=== PATIENT | male | born 1955 | race Caucasian/White ===

== ENCOUNTER 2019-03-16 09:49 | Day surgery (SDC) | payer OTHER ==
[2019-03-16] MEDS ORDERED: CEFAZOLIN 1 GM INJ (11:22)
[2019-03-16] MEDS ORDERED: LIDOCAINE 2% (SDV) 5 ML INJ (11:22)
[2019-03-16] MEDS ORDERED: PROPOFOL 20 ML (11:22)
[2019-03-16] MEDS ORDERED: MIDAZOLAM 1 MG/ML 2 ML INJ (11:23)
[2019-03-16] MEDS ORDERED: FENTAnyl 50 MCG/ML VIAL (11:23)
[2019-03-16] MEDS ORDERED: ROPIVACAINE 0.5 % 30 ML VIAL (11:24)
[2019-03-16] MEDS ORDERED: HYDROmorphONE 1 MG/5 ML IV SYRINGE IV ×3 (12:00)
[2019-03-16] MEDS ORDERED: hydrALAzine 20 MG INJ IV (12:00)
[2019-03-16] MEDS ORDERED: OXYCODONE/ACETAMINOPHEN (5/325) TAB PO ×2 (12:00)
[2019-03-16] MEDS ORDERED: LABETALOL HCL 20MG INJ IV (12:00)
[2019-03-16] MEDS ORDERED: DEXAMETHASONE 4 MG/ML 5 ML INJ (12:18)
[2019-03-16] MEDS ORDERED: METOCLOPRAMIDE 10 MG INJ (12:18)
[2019-03-16] MEDS ORDERED: FAMOTIDINE 20 MG INJ (12:18)
[2019-03-16] MEDS ORDERED: ONDANSETRON 4 MG INJ (12:18)
[2019-03-16] MEDS ORDERED: morphine 10 MG INJ IM (12:30)
[2019-03-16] MEDS ORDERED: ONDANSETRON 4 MG INJ IV (12:30)
[2019-03-16] MEDS ORDERED: morphine 2 MG INJ IV (12:30)
[2019-03-16] MEDS ORDERED: HYDROCODONE/APAP (5/325) TAB PO ×2 (12:30)
[2019-03-16] MEDS: ROPIVACAINE 0.2% 20 ML VIAL (12:34)
[2019-03-16] MEDS ORDERED: KETOROLAC 30 MG INJ (12:37)
[2019-03-16] MEDS: ONDANSETRON 4 MG INJ IV (13:31)
[2019-03-16] MEDS: MEPERIDINE 25 MG INJ IV (13:31)
== END 2019-03-16 15:01 | disposition home or self-care (01) ==
LOC: SDS 09:49
DX: M23.252 Derangement of posterior horn of lateral meniscus due to old tear or injury, left knee (principal); M23.222 Derangement of posterior horn of medial meniscus due to old tear or injury, left knee
CPT/HCPCS: 29880; 71045